=== PATIENT | male | born 1975 | race Two or more races ===

== ENCOUNTER 2016-04-15 18:41 | Emergency (ER) | payer MEDICAID ==
[~2016-04-15] VITALS: Ht 170.2 cm; Wt 78.5 kg
[2016-04-15 19:00] VITALS: BP 142/79
== END 2016-04-15 22:25 | disposition home or self-care (01) ==
LOC: ER 18:45
DX: S62.141A Displaced fracture of body of hamate [unciform] bone, right wrist, initial encounter for closed fracture (principal); W23.0XXA Caught, crushed, jammed, or pinched between moving objects, initial encounter; Y93.89 Activity, other specified; Y92.89 Other specified places as the place of occurrence of the external cause; Y99.8 Other external cause status
CPT/HCPCS: 73110; 73130-TC; A4606; Z7610

== ENCOUNTER 2019-11-07 13:07 | Emergency (ER) | payer MEDICAID ==
[~2019-11-07] VITALS: Ht 170.2 cm; Wt 77.1 kg
[2019-11-07 13:23] VITALS: BP 146/75
== END 2019-11-07 13:45 | disposition home or self-care (01) ==
LOC: ER 13:17
DX: R21 Rash and other nonspecific skin eruption (principal); E11.9 Type 2 diabetes mellitus without complications